=== PATIENT | female | born 1950 | race Two or more races ===

== ENCOUNTER 2017-08-18 07:53 | Emergency (ER) | payer OTHER ==
[~2017-08-18] VITALS: Ht 154.9 cm; Wt 108.9 kg
[~2017-08-18 07:53] MED LIST: ATACAND4 MG PO; ENALAPRIL MALE2.5 MG; ORPH100T PO; PRILOSEC20 MG PO; SYNTHROID50 MCG; THYROID MED
== END 2017-08-18 12:37 | disposition home or self-care (01) ==
LOC: ER 07:53
DX: M79.662 Pain in left lower leg (principal); R60.0 Localized edema

== ENCOUNTER 2018-07-18 13:53 | Outpatient (CLI) | payer OTHER | END 2018-07-18 13:59 | disposition home or self-care (01) | LOC: RAD 501 13:53 | DX: Z01.818 Encounter for other preprocedural examination (principal); R07.89 Other chest pain ==

== ENCOUNTER 2018-09-26 09:08 | Outpatient (CLI) | payer OTHER | END 2018-09-26 09:09 | disposition home or self-care (01) | LOC: RAD 09:08 | DX: M17.12 Unilateral primary osteoarthritis, left knee (principal) ==

== ENCOUNTER 2019-08-19 11:49 | Outpatient (CLI) | payer OTHER | END 2019-08-19 11:51 | disposition home or self-care (01) | LOC: RAD 11:49 | PROVIDERS: ATTEND Physical Medicine & Rehabilitation | DX: M17.12 Unilateral primary osteoarthritis, left knee (principal) ==

== ENCOUNTER 2019-09-18 09:43 | Outpatient (CLI) | payer OTHER | END 2019-09-18 09:49 | disposition home or self-care (01) | LOC: RAD 09:43 | PROVIDERS: ATTEND Physical Medicine & Rehabilitation | DX: M54.2 Cervicalgia (principal) ==

== ENCOUNTER 2020-11-06 07:25 | Emergency (ER) | payer OTHER ==
[~2020-11-06] VITALS: Ht 162.6 cm; Wt 113.4 kg
[2020-11-06] MEDS ORDERED: LISINOPRIL20 MG PO (07:39)
[2020-11-06] MEDS ORDERED: ZOCOR20 MG PO (07:39)
[2020-11-06] MEDS ORDERED: SYNTHROID88 MCG PO (07:40)
[2020-11-06] MEDS ORDERED: NITROGLYCERIN0.4 MG (07:40)
[2020-11-06] MEDS ORDERED: PEPCID AC20 MG PO (18:24)
[2020-11-06] MEDS ORDERED: ANUSOL-HC25 MG RECTAL (18:24)
== END 2020-11-06 18:46 | disposition home or self-care (01) ==
LOC: ER 07:25
DX: R55 Syncope and collapse (principal); K62.5 Hemorrhage of anus and rectum; R10.84 Generalized abdominal pain

== ENCOUNTER 2021-01-25 07:18 | Outpatient (CLI) | payer OTHER ==
[~2021-01-25 07:18] MED LIST changes: +ANUSOL-HC25 MG RECTAL; +LISINOPRIL20 MG PO; +NITROGLYCERIN0.4 MG; +PEPCID AC20 MG PO; +SYNTHROID88 MCG PO; +ZOCOR20 MG PO
== END 2021-01-25 07:20 | disposition home or self-care (01) ==
LOC: NUCLEAR 07:18
PROVIDERS: ATTEND Internal Medicine Gastroenterology
DX: K62.5 Hemorrhage of anus and rectum (principal); R10.10 Upper abdominal pain, unspecified; K30 Functional dyspepsia
CPT/HCPCS: 78264; A9541

== ENCOUNTER 2021-11-02 07:29 | Outpatient (CLI) | payer OTHER | END 2021-11-02 07:30 | disposition home or self-care (01) | LOC: NUCLEAR 07:29 | PROVIDERS: ATTEND Internal Medicine | DX: I25.10 Atherosclerotic heart disease of native coronary artery without angina pectoris (principal) ==

== ENCOUNTER 2022-02-02 16:12 | Inpatient (IN) | payer OTHER ==
[~2022-02-02] VITALS: Ht 167.6 cm; Wt 113.4 kg
[2022-02-02] MEDS ORDERED: ECOTRIN81 MG (17:07)
== END 2022-02-05 12:01 | disposition home or self-care (01) | DRG 331 ==
LOC: ER 16:12 → MEDJ 22:29 → SEC-K 22:29 → MEDJ 02-03 10:44
PROVIDERS: Surgery; ADMIT Internal Medicine; ATTEND Internal Medicine
PROC: 0DTJ4ZZ Resection of Appendix, Percutaneous Endoscopic Approach (ICD-10-PCS; 2022-02-03)
PROC: 0DBH4ZZ Excision of Cecum, Percutaneous Endoscopic Approach (ICD-10-PCS; principal; 2022-02-03 23:30)
DX: K35.80 Unspecified acute appendicitis (principal); K52.9 Noninfective gastroenteritis and colitis, unspecified; K63.89 Other specified diseases of intestine; I10 Essential (primary) hypertension; E03.8 Other specified hypothyroidism; E66.09 Other obesity due to excess calories

== ENCOUNTER 2024-06-10 12:16 | Outpatient (CLI) | payer OTHER ==
[~2024-06-10 12:16] MED LIST changes: +ECOTRIN81 MG
== END 2024-06-10 12:24 | disposition home or self-care (01) ==
LOC: SONOGRAMA 12:16
PROVIDERS: ATTEND Internal Medicine
DX: N18.2 Chronic kidney disease, stage 2 (mild) (principal); E04.2 Nontoxic multinodular goiter

== ENCOUNTER 2024-07-17 11:21 | Outpatient (CLI) | payer OTHER | END 2024-07-17 14:27 | disposition home or self-care (01) | LOC: EKG 11:21 | DX: I10 Essential (primary) hypertension (principal) ==

== ENCOUNTER 2024-07-17 13:00 | Outpatient (CLI) | payer OTHER | END 2024-07-17 13:06 | disposition home or self-care (01) | LOC: RAD 13:00 | PROVIDERS: ATTEND Internal Medicine | DX: Z01.818 Encounter for other preprocedural examination (principal) ==